=== PATIENT | female | born 1965 | race American Indian/Alaskan Native ===

== ENCOUNTER 2019-04-27 22:28 | Inpatient (IN) | payer OTHER ==
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
[2019-04-27] MEDS ORDERED: Iopamidol 612 MG/ML 100 ML Bottle IVPUSH ONE (23:07)
[2019-04-27] MEDS ORDERED: Insulin Regular, Human 100 Units/ML 3 ML Vial IV STA (23:33)
[2019-04-27] MEDS: Sodium Chloride 0.9% 1,000 ML IV SCH (23:46)
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
[2019-04-28] MEDS ORDERED: 50% Dextrose in Water 50 ML Syringe IVPUSH PRN (00:58)
[2019-04-28] MEDS ORDERED: Ibuprofen 800 MG Tab PO PRN (01:04)
[2019-04-28] MEDS: Ibuprofen 600 MG Tab PO PRN ×2 (02:12→11:11)
[2019-04-28] MEDS: Acetaminophen/HYDROcodone 325-5 MG Tab PO PRN ×3 (04:20→21:14)
[2019-04-28] MEDS: Sodium Chloride 0.9% 1,000 ML IV SCH (06:52)
[2019-04-28] MEDS: Insulin Glarg,Human.Rec.Analog 100 UNIT/ML ML SUBCUT SCH ×3 (07:06→17:08)
[2019-04-28] MEDS: glipiZIDE 5 MG Tab PO SCH ×2 (07:06→17:09)
[2019-04-28 07:32] LABS: HEMOGLOBIN A1C 11.4 % (4.50-6.20)
[2019-04-28] MEDS: Acetaminophen 325 MG Tab PO PRN (08:57)
[2019-04-28] MEDS ORDERED: glipiZIDE 5 MG Tab PO SCH (09:00)
[2019-04-28] MEDS: Insulin Lispro 100 Units/ML 3 ML Vial SUBCUT SCH ×4 (09:19→21:20)
[2019-04-28] MEDS: Enoxaparin 40 MG/0.4 ML Syringe SUBCUT SCH (09:20)
[2019-04-28] MEDS: Polyethylene Glycol 3350 Powder 17 GM Packet PO SCH (09:20)
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
[2019-04-28] MEDS ORDERED: LEVEMIR 100 UNIT/ML SQ ONE (21:20)
[2019-04-29] MEDS: Ibuprofen 600 MG Tab PO PRN (06:50)
[2019-04-29] MEDS: Polyethylene Glycol 3350 Powder 17 GM Packet PO SCH ×2 (06:51→08:29)
[2019-04-29] MEDS: Insulin Lispro 100 Units/ML 3 ML Vial SUBCUT SCH ×2 (06:52→12:23)
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
[2019-04-29] MEDS ORDERED: [UNRECOGNIZED DRUG - OTHER] SQ SCH (08:00)
[2019-04-29] MEDS ORDERED: INSULIN LEVEMIR SQ SCH (08:00)
[2019-04-29] MEDS: Enoxaparin 40 MG/0.4 ML Syringe SUBCUT SCH (08:59)
[2019-04-29] MEDS: Acetaminophen/HYDROcodone 325-5 MG Tab PO PRN ×2 (08:59→14:27)
[2019-04-29] MEDS ORDERED: [UNRECOGNIZED DRUG - OTHER] SUBCUT SCH (09:01)
[2019-04-29] MEDS ORDERED: INSULIN LEVEMIR SUBCUT SCH (09:01)
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
[2019-04-29] MEDS: Acetaminophen 325 MG Tab PO PRN (12:23)
--- NOTE | 2019-04-30 07:33 | CT ---
CT cervical spine Technique: Multiple axial sections were obtained from above C1 inferiorly to the top of T2. Reconstructed sagittal and coronal images were reviewed. Comparison: No prior cervical spine imaging is available. Findings: Rounded finding is seen within the right maxillary sinus measuring 1.2 cm which most likely represents an incidental retention cyst. Mastoid sinuses are clear. Posterior skull base appears intact. Fracture is noted within the left first rib near the costovertebral junction. Fracture noted within the posterior second rib as well as partially visualized displaced fracture within the posterior left third rib. No cervical spine fracture is seen. No abnormal subluxation is appreciated. Impression: 1. Retention cyst within the right maxillary sinus which is believed to be incidental. 2. Rib fractures within the first through left third ribs. First rib fracture was not mentioned on prior chest CT. 3. Nothing acute is appreciated within the cervical spine. Diagnostic code #2 I agree with preliminary report issued by [facility] ([facility] preliminary report dictated on 04/28/19, 12:40 AM Central Time)
--- NOTE | 2019-04-30 07:56 | CT ---
CT chest Technique: Multiple axial sections through the chest were obtained. Reconstructed coronal and sagittal images were obtained. Intravenous contrast was utilized. Comparison: No prior chest imaging. Findings: Nondisplaced fracture is noted within the posterior left second rib. Displaced fracture is noted within the posterior left third rib. Nondisplaced fracture is seen within the anterolateral fifth rib. Minimally displaced fracture is seen with lateral sixth rib. Nondisplaced fracture is noted within the lateral seventh rib. Slight pleural thickening is seen in the area of the rib fractures. Calcified nodule noted within the right lung base which is felt to be due to granuloma. Minimal scarring is felt to be present within both lung bases. Very slight parenchymal density is seen adjacent to the sixth rib within the left lower lung compatible with minimal adjacent pulmonary contusion. No pleural effusions or pneumothorax are seen at this time. No subcutaneous air is seen within the chest wall. No other acute osseous abnormality is appreciated. Mediastinum and hilar regions show no adenopathy or mass. Aorta shows no aneurysm. No pericardial effusion is seen. No axillary adenopathy is seen. Impression: 1. Fractures within the left second, third, fifth, sixth and seventh ribs. Greatest displacement is within the third rib fracture. 2. Minimal pulmonary contusion adjacent to the left seventh rib fracture. 3. Mild scarring within both posterior lung bases. 4. No other acute abnormality is seen. Diagnostic code #3 Agree with preliminary report issued by [employer] ([facility] preliminary report dictated on 04/28/19, 12:45 AM Central Time) CT abdomen and pelvis Technique: Multiple axial sections were obtained from above the dome of the diaphragm inferiorly through the pubic symphysis. Intravenous contrast was utilized. No oral contrast has been given. Comparison: No prior abdominal or pelvic imaging is available. Findings: Liver contains no focal abnormality. There is at least one gallstone within the gallbladder. This stone measures 3.5 cm. Spleen appears within normal limits. Adrenal glands show no nodule. Pancreas is within normal limits. Kidneys show symmetric contrast enhancement. Small low-density cortical finding is seen within the mid right kidney most likely due to small cyst measuring approximately 1.2 cm. No additional renal abnormality is appreciated. Aorta shows atherosclerotic change without aneurysm. No retroperitoneal adenopathy or mesenteric abnormalities are seen. Appendix is seen which is normal in size. Calcified uterine fibroid is seen on the left side measuring approximately 4.0 cm. No free fluid or inflammatory change is seen within the abdomen or pelvis. No bowel dilatation is identified. Bone window settings were reviewed which show slight degenerative change within the lumbar spine. No acute osseous abnormality is appreciated. Impression: 1. At least one gallstone within the gallbladder. 2. Small right renal cyst. 3. Other findings as noted above believed to be incidental. 4. Nothing acute is appreciated on CT study of the abdomen and pelvis. Diagnostic code #2 I agree with preliminary report issued by [employer] ([facility] preliminary report dictated on 04/28/19, 12:45 AM Central Time)
== END 2019-04-29 14:53 | disposition home or self-care (01) | DRG 184 ==
LOC: JD.ED 22:28 → JD.MS 04-28 00:19
PROVIDERS: ADMIT Surgery; ATTEND Internal Medicine
DX: S22.42XA Multiple fractures of ribs, left side, initial encounter for closed fracture (principal); S27.321A Contusion of lung, unilateral, initial encounter; E11.65 Type 2 diabetes mellitus with hyperglycemia; E78.00 Pure hypercholesterolemia, unspecified; M19.90 Unspecified osteoarthritis, unspecified site; F17.210 Nicotine dependence, cigarettes, uncomplicated; E66.9 Obesity, unspecified; H54.7 Unspecified visual loss; M54.2 Cervicalgia; F32.9 Major depressive disorder, single episode, unspecified; M25.512 Pain in left shoulder; V58.5XXA Driver of pick-up truck or van injured in noncollision transport accident in traffic accident, initial encounter; Y92.410 Unspecified street and highway as the place of occurrence of the external cause; Y99.8 Other external cause status; Z59.0 Homelessness; Z79.4 Long term (current) use of insulin; Z88.1 Allergy status to other antibiotic agents; Z88.2 Allergy status to sulfonamides; Z68.33 Body mass index [BMI] 33.0-33.9, adult; Z98.890 Other specified postprocedural states
CPT/HCPCS: 36415; 71260; 71260-26; 72125; 72125-26; 74177; 74177-26; 80053; 82947; 82962; 83036; 85025; 93005; 93010; 96361; 96374; 97116-GP; 97161-GP; 99285; 99285-25; A9270-GY; J1650; J1815-GY; J7040; Q9967